=== PATIENT | male | born 1965 | race Caucasian/White ===

== ENCOUNTER 2017-07-30 08:20 | Observation (INO) | payer BC ==
[2017-07-30 08:29] VITALS: BMI 38.7
--- NOTE | 2017-07-30 09:13 | DR.GENAD ---
HPI - PCP Primary Care Physician: DR. GRANADOS - Complaint/Symptoms Chief Complaint Doctors Comments: Patient admits to eating steak on last night and feels that it has not passed. He has a history of esophageal structure and dilated couple years ago by Dr Vilchis. Chief Complaint:: PT C/O HX OF HAVING TO HAVE HIS THROAT STRETCHED AND PT SAW MD FOR THIS ISSUE PRIOR AND PT HAD TO HAVE HIS THROAT STRETCHED PT STATES HE WAS EATING STEAK LAST LAST AND HE GOT A PIECE OF STEAK STUCK AND HE IS NOT HAVING PROBLEMS BREATHING AND HE IS NOT SOB AND HE SLEPT GOOD PT STATES HE GOT UP THIS AM AND HE TRIED TO DRINK H2O AND HE HAD TO INDUCE VOMITTING TO GET IT UP ".. - Source History Provided: Patient - Mode of Arrival Mode of Arrival: Ambulatory - Timing Onset of Chief Complaint: 07/29/17 PMH - PMH Past Medical History: Yes Past Medical History: Dyslipidemia, Hypertension Past Surgical History: No - Family History History of Family Medical Conditions: No Family Medical History: Diabetes Mellitus, Cancer, Coronary Artery Disease, Hypertension - Social History Does patient currently use any type of tobacco product: No Have you used tobacco products in the last 12 months: No Type of Tobacco Use: None Does any household member use tobacco: No Alcohol Use: None Do you use any recreational Drugs:: No Lives With: Family Lives Where: Home - infectious screening In the last 2 months have you had wt loss of >10#?: NO Have you had fever, night sweats or hemotysis?: No Have you traveled outside the country in the last 6 months?: No Isolation: Standard ROS - Review of Systems Constitutional: No Symptoms Reported Eyes: No Symptoms Reported ENTM: No Symptoms Reported Respiratoy: No Symptoms Reported Cardiovascular: No Symptoms Reported Gastrointestinal/Abdominal: See HPI Genitourinary: No Symptoms Reported Neurological: No Symptoms Reported Musculoskeletal: No Symptoms Reported Integumentary: No Symptoms Reported Hematologic/Lymphatic: No Symptoms Reported Endocrine: No Symptoms Reported Psychiatric: No Symptoms Reported All Other Systems: Reviewed and Negative PE - Vital Signs Vitals: Temperature 98.2 F Pulse Rate 87 Respiratory Rate 18 Blood Pressure 158/84 O2 Sat by Pulse Oximetry 94 - General Limitations: No Limitations General Appearance: Alert, In No Apparent Distress - Head Head Exam: Normal Inspection, Atraumatic - Eyes Eye exam: Normal Appearance, PERRL, EOMI - ENT ENT Exam: Normal Exam External Ear Exam: Normal External Inspection TM/Canal Exam: Bilateral Normal Nose Exam: Normal Nose Exam Mouth Exam: Normal Inspection Throat Exam: Normal Inspection - Neck Neck Exam: Normal Inspection - Chest Chest Inspection: Normal Inspection - Respiratory Respiratory Exam: Normal Lung Sounds Bilat Respiratory Exam: Bilateral Clear to Auscultation - Cardiovascular Cardiovascular Exam: Regular Rate, Normal Rhythm - Abdominal Exam Abdominal Exam: Normal Inspection Abdominal Tenderness: Epigastrium. negative: RUQ, RLQ, LUQ, LLQ, Suprapubic, Diffuse, Mild, Moderate, Severe, Other - Extremities Extremities Exam: Normal Inspection, Full ROM - Back Back Exam: Normal Inspection - Neurologic Neurological Exam: Alert, Oriented X3, CN II-XII Intact - Psychiatric Psychiatric Exam: Normal Affect, Normal Mood - Skin Skin Exam: Warm, Dry, Intact Course - Reevaluation 1st: Resolved - Consultation Called: 10:00 (Dr Sharif recomended obs/npo) ROR - XRAY XRAY Interpreted by: Radiologist (Soft tissues of neck: AP/Lat:Increased soft tissue density in the hypopharynx and prevertebral area. This is nonspecific but a mass may vbe present. Direct inspection and /or neck CT recommended.) - Diagnosis Discharge Problem: Esophageal obstruction due to food impaction - Discharge Plan Condition: Stable - Follow ups/Referrals Follow ups/Referrals: Mike Granados [Primary Care Provider] - 3 days - Instructions
--- NOTE | 2017-07-30 09:21 | RAD ---
Examination: Soft tissues of neck, two views History: Recent throat stretching Findings: AP and lateral views of the cervical soft tissues demonstrate apparent widening of the prev ertebral soft tissue surfaces. There is no discrete mass or unusual calcification. The normally air f illed oropharynx and hypopharynx are not identified. The epiglottis is not defined. Impression: Increased soft tissue density in the hypopharynx and prevertebral area. This is nonspecif ic but a mass may be present. Direct inspection and/or neck CT recommended. Reported By:
[2017-07-30] MEDS ORDERED: NS 1000 ML 1,000 ML ONE (10:10)
--- NOTE | 2017-07-30 10:34 | CT ---
HISTORY: Dysphagia Study: CT soft tissue neck without contrast Comparison: Plain films same date Technique: Axial noncontrast images with coronal and sagittal reformats. Dose reduction procedures we re used with mA/kv adjusted for body size. The examination is significantly limited due to the lack o f intravenous contrast. Findings: The parotid and submandibular glands are symmetric and normal. No nasopharyngeal abnormality is ident ified. No definite or oropharyngeal abnormality is identified. No definite masses identified in the h ypopharynx. The piriform sinuses are clear. The epiglottis is normal. No fair range Ell or upper esop hageal foreign body is identified. No ladder Joe abnormality is identified. The thyroid gland appea rs within normal limits. No supraclavicular or upper mediastinal adenopathy is identified. Those port ions of the lung apices visualized were normal. No skeletal abnormality is identified. No enlarged an terior or posterior cervical chain lymphadenopathy is identified. No abnormal soft tissue mass is tamar ntified. IMPRESSION: No significant abnormality to the limitations of an unenhanced examination Reported By:
[2017-07-30 10:35] LABS: BASOPHILS # (AUTO) 0.1 X10^3/uL (0.0-0.1); BASOPHILS % (AUTO) 1.3 % (0.2-1.0); EOSINOPHILS # (AUTO) 0.1 x10^3/uL (0.0-0.2); EOSINOPHILS % (AUTO) 1.9 % (0.9-2.9); HEMATOCRIT 41.6 % (42.0-54.0); HEMOGLOBIN 14.3 g/dL (13.5-18.0); LYMPHOCYTES # (AUTO) 1.8 X10^3/uL (1.3-2.9); LYMPHOCYTES % (AUTO) 24.2 % (21.0-51.0); MEAN CORPUSCULAR HEMOGLOBIN 29.4 pg (27.0-34.0); MEAN CORPUSCULAR HGB CONC 34.3 g/dL (33.0-35.0); MEAN CORPUSCULAR VOLUME 85.8 fL (80.0-100.0); MEAN PLATELET VOLUME 8.2 fL (7.4-11.0); MONOCYTES # (AUTO) 0.5 x10^3/uL (0.3-0.8); MONOCYTES % (AUTO) 7.2 % (0.0-13.0); NEUTROPHILS # (AUTO) 4.8 x10^3/uL (2.2-4.8); NEUTROPHILS % (AUTO) 65.4 % (42.0-75.0); PLATELET COUNT 273 X10^3/uL (150.0-450.0); RED BLOOD COUNT 4.84 X10^6/uL (4.7-6.0); RED CELL DISTRIBUTION WIDTH 13.6 % (11.6-16.5); WHITE BLOOD COUNT 7.4 X10^3/uL (3.6-10.0)
[2017-07-30] MEDS ORDERED: NS 1000 ML 1,000 ML IV SCH (11:00)
[2017-07-30 11:24] LABS: ALANINE AMINOTRANSFERASE 46 Units/L (12-78); ALBUMIN 3.8 g/dL (3.4-5.0); ALKALINE PHOSPHATASE 74 Units/L (46-116); ASPARTATE AMINO TRANSFERASE 26 Units/L (15-37); BLOOD UREA NITROGEN 18 mg/dL (7-18); CALCIUM 9.2 mg/dL (8.5-10.1); CARBON DIOXIDE 28.6 mmol/L (21-32); CHLORIDE 104 mmol/L (98-107); SODIUM 140 mmol/L (136-145); TOTAL PROTEIN 7.6 g/dL (6.4-8.2); eGFR BLACK RACES > 60 (>60); eGFR NON BLACK RACES > 60 (>60)
[2017-07-30] MEDS ORDERED: DIPRIVAN VIAL 20 ML ONE ×2 (13:28→13:50)
[2017-07-30] MEDS ORDERED: VERSED ONE (13:29)
[2017-07-30 15:32] VITALS: BP 154/79
== END 2017-07-30 17:00 | disposition home or self-care (01) | DRG 392 ==
LOC: ER 08:32 → MED/SURG 10:11
PROVIDERS: ADMIT Internal Medicine; ATTEND Internal Medicine
PROC: 0D758ZZ Dilation of Esophagus, Via Natural or Artificial Opening Endoscopic (ICD-10-PCS; 2017-07-30)
PROC: 0DB68ZX Excision of Stomach, Via Natural or Artificial Opening Endoscopic, Diagnostic (ICD-10-PCS; principal; 2017-07-30 13:00)
DX: K22.2 Esophageal obstruction (principal); E78.2 Mixed hyperlipidemia; I10 Essential (primary) hypertension; R94.31 Abnormal electrocardiogram [ECG] [EKG]; K29.80 Duodenitis without bleeding; K44.9 Diaphragmatic hernia without obstruction or gangrene; K29.60 Other gastritis without bleeding
CPT/HCPCS: 36415; 70360; 70490; 80053; 85025; 85610; 93005; 94760; 96365; 99283; 99284; A4222; A4217; G0378; J2250; J3490